=== PATIENT | male | born 1945 | race Hispanic/Latino ===

== ENCOUNTER 2018-08-18 04:15 | Inpatient (IN) | payer MEDICARE, BC ==
[2018-08-18] MEDS ORDERED: NACL 0.9% 1000 ML 1,000 ML IV ONE (06:53)
[2018-08-18] MEDS ORDERED: ZOFRAN IV ONE (06:53)
[2018-08-18] MEDS ORDERED: MORPHINE IV ONE ×2 (06:53→10:25)
[2018-08-18 06:55] LABS: Basophils # (Auto) 0.1 K/mm3 (0.0-0.1); Basophils % (Auto) 0.7 % (0.0-1.8); Eosinophils # (Auto) 0.1 K/mm3 (0.0-0.4); Hematocrit 43.4 % (35.5-45.6); Hemoglobin 14.9 gm/dl (11.8-15.2); Lymphocytes % (Auto) 13.1 % (13.4-35.0); Mean Corpuscular HGB Conc 34 % (32-34); Mean Corpuscular Volume 97 fl (84-94); Monocytes # (Auto) 0.7 K/mm3 (0.0-0.8); Monocytes % (Auto) 8.8 % (0.0-7.3); Platelet Count 223 K/mm3 (140-440); Red Blood Count 4.48 M/mm3 (3.65-5.03); Red Cell Distribution Width 14.7 % (13.2-15.2)
[2018-08-18 07:16] LABS: Alanine Aminotransferase 23 units/L (7-56); BUN/Creatinine Ratio 27; Blood Urea Nitrogen 19 mg/dL (9-20); Calcium 9.1 mg/dL (8.4-10.2); Hemolysis Index 47
[2018-08-18 07:33] LABS: INR 1.15 (0.87-1.13)
[2018-08-18 07:41] LABS: Bilirubin,Direct 0.2 mg/dL (0-0.2)
--- NOTE | 2018-08-18 08:39 | Cat Scan Report ---
PROCEDURE: CT ABDOMEN PELVIS WO CON TECHNIQUE: Computerized axial tomography of the abdomen and pelvis was performed without intravenous contrast. This study is performed without intravascular contrast material and its sensitivity for ab dominal and pelvic pathology, including neoplasms, inflammation, abscess, free fluid, thrombosis, art erial dissection and infarction, is reduced compared with a contrast enhanced study. CT DOSE LENGTH PRODUCT: mGycm HISTORY: l flank pain COMPARISONS: None . FINDINGS: Imaged intrathoracic contents are remarkable for pacemaker leads and coronary artery disease. Left ureteral stent. An 8 mm stone is present adjacent to the stent within the proximal ureter and an additional 9 mm stone is present adjacent to the stent within the distal ureter. No left-sided hydro ureteronephrosis. No stones in the left renal collecting system. There are nonobstructive 1 mm stones in the right collecting system. No right-sided hydroureteronephrosis. There are several scattered si mple-appearing renal cysts noted in both kidneys. No stones in the urinary bladder. Pelvic phlebolith s are noted. The liver, gallbladder, pancreas, spleen, and adrenal glands demonstrate an unremarkable noncontrast appearance. Hollow enteric organs are normal in course and caliber. No appendicitis. No intra-abdominal free air/ fluid or lymphadenopathy. Aorta is normal in course and caliber with densely scattered atherosclerosis. Superficial soft tissues are unremarkable. No acute or aggressive appearing skeletal findings. Lower thoracic diffuse etiopathic skeletal hyperostosis. IMPRESSION: Proximal and distal ureteral stones measuring up to 8 mm are present with a left ureteral stent in pl [place]. No hydroureteronephrosis. Coronary and peripheral arterial disease. This document is electronically signed by Freedom Warren MD., August 18 2018 07:35:55 AM ET
--- NOTE | 2018-08-18 09:35 | XRay Report ---
PROCEDURE: XR CHEST 1V AP TECHNIQUE: Chest radiograph single view. HISTORY: hypertension COMPARISONS: CT abdomen and pelvis of the same date . FINDINGS: No mediastinal shift. Cardiac silhouette is borderline enlarged. Left chest pacemaker. No pneumothora x, effusion, or focal pulmonary opacity identified. No acute skeletal findings. Cervical fusion hard alatorre. IMPRESSION: No acute pulmonary finding identified. This document is electronically signed by Freedom Warren MD., August 18 2018 08:19:36 AM ET
[2018-08-18 12:05] LABS: Bilirubin,Urine NEG (Negative); Blood,Urine LG (Negative); Color,Urine Amber (Yellow); Urobilinogen,Urine < 2.0 mg/dL (<2.0)
[2018-08-18 12:07] LABS: RBC,Urine > 182.0 /HPF (0.0-6.0)
[2018-08-18] MEDS ORDERED: ROCEPHIN/NS 1 GM/50 ML 1 GM/50 ML BAG IV ONE (13:04)
[2018-08-18] MEDS ORDERED: NORCO 5/325 PO ONE (13:04)
--- NOTE | 2018-08-18 13:19 | Emergency Department Report ---
ED General Adult HPI - General Chief complaint: Abdominal Pain Stated complaint: LEFT FLANK PAIN/BLOOD IN URINE Time Seen by Provider: 08/18/18 06:23 Source: patient, EMS Mode of arrival: Stretcher Limitations: No Limitations - History of Present Illness Initial comments: Is a 73-year-old man who is currently an inpatient at [facility]. Apparently he was admitted there 2 days ago for suicidal ideation. He was transferred from [place] after he voiced such complaints. He has multiple medical conditions. Apparently he was depressed about them per the daughter. He did not actually done anything to hurt himself however. Patient presents to the emergency room today complaining of left lateral chest and flank pain. He states he's had blood in his urine. He does not report fever or nausea or vomiting. The chest pain appears to be related to his left flank pain. However, the patient also complains of chronic pain radiating from the left side of his neck. He does admit that that pain is different. He takes 10 mg of hydrocodone twice a day on a chronic basis. He has had multiple cardiac stents. He has recently been taken off anticoagulants for ureteral stent placement. He states that he was supposed to have his anticoagulation restarted but this has not occurred yet. His urologist is in [place]. He did not have lithotripsy or endoscopic retrieval of kidney stone. He does give a history of an obstructing kidney stone however on the left. -: Gradual, days(s) Location: chest, back Radiation: non-radiation Severity scale (0 -10): 8 Quality: aching Consistency: intermittent Improves with: none Worsens with: none Associated Symptoms: denies other symptoms, other (dysuria) Treatments Prior to Arrival: none - Related Data Allergies Allergy/AdvReac Type Severity Reaction Status Date / Time droperidol Allergy Unknown Verified 08/18/18 04:40 ED Review of Systems ROS: Stated complaint: LEFT FLANK PAIN/BLOOD IN URINE Other details as noted in HPI Constitutional: denies: chills, fever Eyes: denies: eye pain, eye discharge, vision change ENT: denies: ear pain, throat pain Respiratory: denies: cough, shortness of breath, wheezing Cardiovascular: chest pain. denies: palpitations Endocrine: no symptoms reported Gastrointestinal: denies: abdominal pain, nausea, diarrhea Genitourinary: dysuria. denies: urgency Musculoskeletal: back pain. denies: joint swelling, arthralgia Skin: denies: rash, lesions Neurological: denies: headache, weakness, paresthesias Psychiatric: denies: anxiety, depression Hematological/Lymphatic: denies: easy bleeding, easy bruising ED Past Medical Hx - Past Medical History Previous Medical History?: Yes Hx Hypertension: Yes Hx Kidney Stones: Yes - Surgical History Past Surgical History?: Yes Hx Coronary Stent: Yes Hx Pacemaker: Yes - Social History Smoking Status: Former Smoker Substance Use Type: None ED Physical Exam - General Limitations: No Limitations General appearance: alert, in no apparent distress - Head Head exam: Present: atraumatic, normocephalic - Eye Eye exam: Present: normal appearance. Absent: scleral icterus - ENT ENT exam: Present: mucous membranes moist - Neck Neck exam: Present: normal inspection. Absent: tenderness, meningismus - Respiratory Respiratory exam: Present: normal lung sounds bilaterally. Absent: respiratory distress - Cardiovascular Cardiovascular Exam: Present: regular rate, normal rhythm. Absent: systolic murmur, diastolic murmur, rubs, gallop - GI/Abdominal GI/Abdominal exam: Present: soft, normal bowel sounds. Absent: distended, tende rness, guarding, rebound, rigid - Rectal Rectal exam: Present: deferred - Extremities Exam Extremities exam: Present: normal inspection - Back Exam Back exam: Present: normal inspection. Absent: CVA tenderness (R), CVA tenderness (L) - Neurological Exam Neurological exam: Present: alert, oriented X3, CN II-XII intact. Absent: motor sensory deficit - Psychiatric Psychiatric exam: Present: normal affect, normal mood - Skin Skin exam: Present: warm, dry, intact, normal color. Absent: rash ED Course Vital Signs 08/18/18 08/18/18 08/18/18 04:40 06:38 08:18 Temperature 97.9 F Pulse Rate 82 Respiratory 18 18 18 Rate Blood Pressure 176/105 [Right] O2 Sat by Pulse 97 99 98 Oximetry 08/18/18 08/18/18 09:02 13:07 Temperature 97.9 F Pulse Rate 86 88 Respiratory 18 18 Rate Blood Pressure 170/98 166/92 [Right] O2 Sat by Pulse 97 97 Oximetry - Reevaluation(s) Reevaluation #1: Patient with repeated complaints of pain. He does not have obstruction. He does have substantial pyuria. Urine was cultured. He was given ceftriaxone and vancomycin. His cardiac workup thus far is negative. His case was discussed with Dr. Arauz. He is admitted to the hospital for further care and evaluation by the hospitalist service. 08/18/18 13:24 ED Medical Decision Making - Lab Data Result diagrams: 08/18/18 06:42 08/18/18 06:42 Laboratory Results - last 24 hr 08/18/18 08/18/18 08/18/18 06:42 06:42 06:42 WBC 7.5 RBC 4.48 Hgb 14.9 Hct 43.4 MCV 97 H MCH 33 H MCHC 34 RDW 14.7 Plt Count 223 Lymph % (Auto) 13.1 L Thomas % (Auto) 8.8 H Eos % (Auto) 1.0 Baso % (Auto) 0.7 Lymph # 1.0 L Thomas # 0.7 Eos # 0.1 Baso # 0.1 Seg Neutrophils % 76.4 H Seg Neutrophils # 5.8 PT INR APTT Sodium 144 Potassium 3.6 Chloride 105.4 Carbon Dioxide 24 Anion Gap 18 BUN 19 Creatinine 0.7 L Estimated GFR > 60 BUN/Creatinine Ratio 27 Glucose 108 H Calcium 9.1 Total Bilirubin 1.10 Direct Bilirubin 0.2 Indirect Bilirubin 0.9 AST 26 ALT 23 Alkaline Phosphatase 70 Total Creatine Kinase 236 H CK-MB (CK-2) 5.0 H CK-MB (CK-2) Rel Index 2.1 Troponin T < 0.010 NT-Pro-B Natriuret Pep 352.7 Total Protein 6.1 L Albumin 4.0 Albumin/Globulin Ratio 1.9 Urine Color Urine Turbidity Urine pH Ur Specific Holman Urine Protein Urine Glucose (UA) Urine Ketones Urine Blood Urine Nitrite Urine Bilirubin Urine Urobilinogen Ur Leukocyte Esterase Urine WBC (Auto) Urine RBC (Auto) 08/18/18 08/18/18 07:05 11:35 WBC RBC Hgb Hct MCV MCH MCHC RDW Plt Count Lymph % (Auto) Thomas % (Auto) Eos % (Auto) Baso % (Auto) Lymph # Thomas # Eos # Baso # Seg Neutrophils % Seg Neutrophils # PT 15.4 H INR 1.15 H APTT 25.0 Sodium Potassium Chloride Carbon Dioxide Anion Gap BUN Creatinine Estimated GFR BUN/Creatinine Ratio Glucose Calcium Total Bilirubin Direct Bilirubin Indirect Bilirubin AST ALT Alkaline Phosphatase Total Creatine Kinase CK-MB (CK-2) CK-MB (CK-2) Rel Index Troponin T NT-Pro-B Natriuret Pep Total Protein Albumin Albumin/Globulin Ratio Urine Color Lorin Urine Turbidity Cloudy Urine pH 5.0 Ur Specific Holman 1.021 Urine Protein 100 mg/dl Urine Glucose (UA) Neg Urine Ketones Tr Urine Blood Lg Urine Nitrite Neg Urine Bilirubin Neg Urine Urobilinogen < 2.0 Ur Leukocyte Esterase Tr Urine WBC (Auto) 126.0 H Urine RBC (Auto) > 182.0 - EKG Data Interpretation: other (atrial pacing complete capture and nonspecific changes normal axis) - Radiology Data Radiology results: report reviewed Critical care attestation.: If time is entered above; I have spent that time in minutes in the direct care of this critically ill patient, excluding procedure time. ED Disposition Clinical Impression: Acute pyelonephritis, Ureteral stent retained Chest pain Qualifiers: Chest pain type: chest pain on breathing Qualified Code(s): R07.1 - Chest pain on breathing Disposition: DC-09 OP ADMIT IP TO THIS HOSP Is pt being admited?: Yes Does the pt Need Aspirin: Yes Condition: Stable Instructions: Chest Pain (ED) Referrals: MERON PAREKH MD [Primary Care Provider] - 3-5 Days Time of Disposition: 13:42
[2018-08-18] MEDS ORDERED: BABY ASPIRIN PO ONE (13:30)
[2018-08-18] MEDS ORDERED: VANCOMYCIN PHARMACY TO DOSE IV SCH (14:00)
[2018-08-18] MEDS ORDERED: VANCOMYCIN 1,750 MG in NACL 0.9% 500 ML 500 ML IV ONE (14:15)
[2018-08-18] MEDS ORDERED: DILAUDID IV PRN (18:34)
--- NOTE | 2018-08-18 19:03 | Cat Scan Report ---
PROCEDURE: CT HEAD/BRAIN WO CON TECHNIQUE: Computerized tomography of the head was performed without contrast material. HISTORY: Fall, VILLATORO, on Plavix COMPARISONS: None . FINDINGS: No CT evidence of intracranial mass, hemorrhage, acute territorial infarction, or hydrocephalus. Intr acranial arteries are symmetric in density. Calvarium is intact. There is minimal bilateral ethmoid s inus mucosal thickening. There is right maxillary sinus mucosal retention cyst or polyp. Mastoids are aerated. IMPRESSION: No CT evidence of acute abnormality . This document is electronically signed by Love Fox MD., August 18 2018 02:50:03 PM ET
--- NOTE | 2018-08-18 19:18 | History and Physical Report ---
History of Present Illness Date of examination: 08/18/18 Date of admission: 08/18/18 13:09 Chief complaint: Blood in Urine and L flank pain for 1 day History of present illness: 73-year-old man currently an inpatient at [facility] admitted there 2 days ago for suicidal ideation. He was transferred from [place] after he voiced such complaints. He has multiple medical conditions. Patient presents to the emergency room today complaining of left lateral flank pain and blood in the urine. Patient had Left ureteral stone for which he had a ureteral stent placed few days ago.No fever or chills.Pain is intermittent and about 8/10.Sharp and localized to L flank.No fever or chills.Patient says he is not suicidal now.Says he was depressed 2 days ago b/c of medical problems.He says he is not suicidal anymore. Past Medical History Previous Medical History?: Yes Hx Hypertension: Yes Hx Kidney Stones: Yes Surgical History Past Surgical History?: Yes Hx Coronary Stent: Yes Hx Pacemaker: Yes Social History Smoking Status: Former Smoker Substance Use Type: None Family History Htn Review of Systems ROS: Stated complaint: LEFT FLANK PAIN/BLOOD IN URINE Other details as noted in HPI Constitutional: denies: chills, fever Eyes: denies: eye pain, eye discharge, vision change ENT: denies: ear pain, throat pain Respiratory: denies: cough, shortness of breath, wheezing Cardiovascular: chest pain. denies: palpitations Endocrine: no symptoms reported Gastrointestinal: denies: abdominal pain, nausea, diarrhea Genitourinary: dysuria. denies: urgency Musculoskeletal: back pain. denies: joint swelling, arthralgia Skin: denies: rash, lesions Neurological: denies: headache, weakness, paresthesias Psychiatric: denies: anxiety, depression Hematological/Lymphatic: denies: easy bleeding, easy bruising Medications and Allergies Allergies Allergy/AdvReac Type Severity Reaction Status Date / Time droperidol Allergy Unknown Verified 08/18/18 04:40 Home Medications Medication Instructions Recorded Confirmed Last Taken Type Amiodarone [Cordarone 200 MG TAB] 200 mg PO DAILY 08/18/18 08/18/18 08/16/18 History Apixaban [Eliquis] 5 mg PO BID 08/18/18 08/18/18 08/16/18 History Ciprofloxacin HCl [Ciprofloxacin 250 mg PO BID 08/18/18 08/18/18 08/16/18 History TAB] Clopidogrel Bisulfate [Clopidogrel] 75 mg PO DAILY 08/18/18 08/18/18 08/16/18 History Digoxin [Lanoxin] 0.125 mg PO DAILY 08/18/18 08/18/18 08/16/18 History FLUoxetine HCL [Fluoxetine HCl] 40 mg PO QDAY 08/18/18 08/18/18 08/16/18 History Hyoscyamine Sulfate [Hyoscyamine 1 dose PO PRN 08/18/18 08/18/18 08/16/18 History Rapdis 0.125 mg] Metoprolol Succinate 50 mg PO BID 08/18/18 08/18/18 08/16/18 History Ondansetron [Zofran TAB] 4 mg PO Q8HR PRN 08/18/18 08/18/18 Unknown History Phenazopyridine [Pyridium] 100 mg PO TID 08/18/18 08/18/18 08/16/18 History Pramipexole [Mirapex] 0.125 mg PO TID 08/18/18 08/18/18 08/16/18 History Zolpidem [Ambien] 5 mg PO QHS PRN 08/18/18 08/18/18 08/15/18 History Active Meds: Active Medications Hydromorphone HCl (Dilaudid) 0.5 mg IV Q3H PRN PRN Reason: Pain , Severe (7-10) Last Admin: 08/18/18 18:43 Dose: 0.5 mg Documented by: Vancomycin HCl 1,250 mg/ (Sodium Chloride) 275 mls @ 166.667 mls/hr IV Q12H KENNETH Exam - Constitutional Vitals: Temp Pulse Resp BP Pulse Ox 97.7 F 86 20 143/70 94 08/18/18 17:15 08/18/18 17:15 08/18/18 17:15 08/18/18 17:15 08/18/18 17:15 General appearance: Present: no acute distress, well-nourished - EENT Eyes: Present: PERRL ENT: hearing intact, clear oral mucosa - Neck Neck: Present: supple, normal ROM - Respiratory Respiratory effort: normal Respiratory: bilateral: CTA - Cardiovascular Heart rate: 78 Rhythm: regular Heart Sounds: Present: S1 & S2. Absent: rub, click - Extremities Extremities: no ischemia, pulses intact, pulses symmetrical, No edema Peripheral Pulses: within normal limits - Abdominal General gastrointestinal: Present: soft, non-tender, non-distended, normal bowel sounds Localized gastrointestinal: tender: LLQ (L flank tender) Male genitourinary: Present: normal - Rectal Rectal Exam: deferred - Integumentary Integumentary: Present: clear, warm, dry - Musculoskeletal Musculoskeletal: gait normal, strength equal bilaterally - Psychiatric Psychiatric: appropriate mood/affect, intact judgment & insight - Neurologic Neurologic: CNII-XII intact, moves all extremities - Allied Health Allied health notes reviewed: nursing, case management Results - Labs CBC & Chem 7: 08/18/18 06:42 08/18/18 06:42 Labs: Laboratory Last Values WBC 7.5 K/mm3 (4.5-11.0) 08/18/18 06:42 RBC 4.48 M/mm3 (3.65-5.03) 08/18/18 06:42 Hgb 14.9 gm/dl (11.8-15.2) 08/18/18 06:42 Hct 43.4 % (35.5-45.6) 08/18/18 06:42 MCV 97 fl (84-94) H 08/18/18 06:42 MCH 33 pg (28-32) H 08/18/18 06:42 MCHC 34 % (32-34) 08/18/18 06:42 RDW 14.7 % (13.2-15.2) 08/18/18 06:42 Plt Count 223 K/mm3 (140-440) 08/18/18 06:42 Lymph % (Auto) 13.1 % (13.4-35.0) L 08/18/18 06:42 [place] % (Auto) 8.8 % (0.0-7.3) H 08/18/18 06:42 Eos % (Auto) 1.0 % (0.0-4.3) 08/18/18 06:42 Baso % (Auto) 0.7 % (0.0-1.8) 08/18/18 06:42 Lymph # 1.0 K/mm3 (1.2-5.4) L 08/18/18 06:42 [place] # 0.7 K/mm3 (0.0-0.8) 08/18/18 06:42 Eos # 0.1 K/mm3 (0.0-0.4) 08/18/18 06:42 Baso # 0.1 K/mm3 (0.0-0.1) 08/18/18 06:42 Seg Neutrophils % 76.4 % (40.0-70.0) H 08/18/18 06:42 Seg Neutrophils # 5.8 K/mm3 (1.8-7.7) 08/18/18 06:42 PT 15.4 Sec. (12.2-14.9) H 08/18/18 07:05 INR 1.15 (0.87-1.13) H 08/18/18 07:05 APTT 25.0 Sec. (24.2-36.6) 08/18/18 07:05 Sodium 144 mmol/L (137-145) 08/18/18 06:42 Potassium 3.6 mmol/L (3.6-5.0) 08/18/18 06:42 Chloride 105.4 mmol/L (98-107) 08/18/18 06:42 Carbon Dioxide 24 mmol/L (22-30) 08/18/18 06:42 Anion Gap 18 mmol/L 08/18/18 06:42 BUN 19 mg/dL (9-20) 08/18/18 06:42 Creatinine 0.7 mg/dL (0.8-1.5) L 08/18/18 06:42 Estimated GFR > 60 ml/min 08/18/18 06:42 BUN/Creatinine Ratio 27 % 08/18/18 06:42 Glucose 108 mg/dL (75-100) H 08/18/18 06:42 Calcium 9.1 mg/dL (8.4-10.2) 08/18/18 06:42 Total Bilirubin 1.10 mg/dL (0.1-1.2) 08/18/18 06:42 Direct Bilirubin 0.2 mg/dL (0-0.2) 08/18/18 06:42 Indirect Bilirubin 0.9 mg/dL 08/18/18 06:42 AST 26 units/L (5-40) 08/18/18 06:42 ALT 23 units/L (7-56) 08/18/18 06:42 Alkaline Phosphatase 70 units/L (35-129) 08/18/18 06:42 Total Creatine Kinase 236 units/L (55-170) H 08/18/18 06:42 CK-MB (CK-2) 5.0 ng/mL (0.0-4.0) H 08/18/18 06:42 CK-MB (CK-2) Rel Index 2.1 (0-4) 08/18/18 06:42 Troponin T < 0.010 ng/mL (0.00-0.029) 08/18/18 06:42 NT-Pro-B Natriuret Pep 352.7 pg/mL (0-900) 08/18/18 06:42 Total Protein 6.1 g/dL (6.3-8.2) L 08/18/18 06:42 Albumin 4.0 g/dL (3.9-5) 08/18/18 06:42 Albumin/Globulin Ratio 1.9 % 08/18/18 06:42 Urine Color Lorin (Yellow) 08/18/18 11:35 Urine Turbidity Cloudy (Clear) 08/18/18 11:35 Urine pH 5.0 (5.0-7.0) 08/18/18 11:35 Ur Specific Jarratt 1.021 (1.003-1.030) 08/18/18 11:35 Urine Protein 100 mg/dl mg/dL (Negative) 08/18/18 11:35 Urine Glucose (UA) Neg mg/dL (Negative) 08/18/18 11:35 Urine Ketones Tr mg/dL (Negative) 08/18/18 11:35 Urine Blood Lg (Negative) 08/18/18 11:35 Urine Nitrite Neg (Negative) 08/18/18 11:35 Urine Bilirubin Neg (Negative) 08/18/18 11:35 Urine Urobilinogen < 2.0 mg/dL (<2.0) 08/18/18 11:35 Ur Leukocyte Esterase Tr (Negative) 08/18/18 11:35 Urine WBC (Auto) 126.0 /HPF (0.0-6.0) H 08/18/18 11:35 Urine RBC (Auto) > 182.0 /HPF (0.0-6.0) 08/18/18 11:35 Short CBC 08/18/18 Range/Units 06:42 WBC 7.5 (4.5-11.0) K/mm3 Hgb 14.9 (11.8-15.2) gm/dl Hct 43.4 (35.5-45.6) % Plt Count 223 (140-440) K/mm3 [facility] 08/18/18 06:42 Sodium 144 Potassium 3.6 Chloride 105.4 Carbon Dioxide 24 BUN 19 Creatinine 0.7 L Glucose 108 H Calcium 9.1 Cardiac Enzymes 08/18/18 Range/Units 06:42 Total Creatine Kinase 236 H (55-170) units/L CK-MB (CK-2) 5.0 H (0.0-4.0) ng/mL Troponin T < 0.010 (0.00-0.029) ng/mL Liver Function 08/18/18 Range/Units 06:42 Total Bilirubin 1.10 (0.1-1.2) mg/dL Direct Bilirubin 0.2 (0-0.2) mg/dL AST 26 (5-40) units/L ALT 23 (7-56) units/L Alkaline Phosphatase 70 (35-129) units/L Albumin 4.0 (3.9-5) g/dL Urine 08/18/18 Range/Units 11:35 Urine Color Lorin (Yellow) Urine pH 5.0 (5.0-7.0) Ur Specific Jarratt 1.021 (1.003-1.030) Urine Protein 100 mg/dl (Negative) mg/dL Urine Glucose (UA) Neg (Negative) mg/dL Short CBC 08/18/18 Range/Units 06:42 WBC 7.5 (4.5-11.0) K/mm3 Hgb 14.9 (11.8-15.2) gm/dl Hct 43.4 (35.5-45.6) % Plt Count 223 (140-440) K/mm3 [facility] 08/18/18 06:42 Sodium 144 Potassium 3.6 Chloride 105.4 Carbon Dioxide 24 BUN 19 Creatinine 0.7 L Glucose 108 H Calcium 9.1 Cardiac Enzymes 08/18/18 Range/Units 06:42 Total Creatine Kinase 236 H (55-170) units/L CK-MB (CK-2) 5.0 H (0.0-4.0) ng/mL Troponin T < 0.010 (0.00-0.029) ng/mL Liver Function 08/18/18 Range/Units 06:42 Total Bilirubin 1.10 (0.1-1.2) mg/dL Direct Bilirubin 0.2 (0-0.2) mg/dL AST 26 (5-40) units/L ALT 23 (7-56) units/L Alkaline Phosphatase 70 (35-129) units/L Albumin 4.0 (3.9-5) g/dL Urine 08/18/18 Range/Units 11:35 Urine Color Lorin (Yellow) Urine pH 5.0 (5.0-7.0) Ur Specific Jarratt 1.021 (1.003-1.030) Urine Protein 100 mg/dl (Negative) mg/dL Urine Glucose (UA) Neg (Negative) mg/dL - Imaging and Cardiology EKG: report reviewed (Atrial paced complexes 86/min) Chest x-ray: report reviewed (NAF) CT scan - abdomen: report reviewed Imaging and Cardiology: CT Abd IMPRESSION: Proximal and distal ureteral stones measuring up to 8 mm are present with a left ureteral stent in place. No hydroureteronephrosis. Coronary and peripheral arterial disease. Head CT IMPRESSION: No CT evidence of acute abnormality . Assessment and Plan Advance Directives: Yes (Full code) VTE prophylaxis?: Mechanical Plan of care discussed with patient/family: Yes - Patient Problems (1) Acute pyelonephritis Current Visit: Yes Status: Acute Plan to address problem: IV ceftriaxone pending urine cultures. (2) Hematuria Current Visit: Yes Status: Acute Qualifiers: Hematuria type: unspecified type Qualified Code(s): R31.9 - Hematuria, unspecified Plan to address problem: Resolving. Had Ureteral Stent one week ago. NoUrology consult requested. Call consult if necessary (3) Arrhythmia Current Visit: Yes Status: Chronic Qualifiers: Atrial fibrillation type: unspecified Plan to address problem: Cont Amiodarone and Digoxin Hold Eliquis given Hematuria (4) HTN (hypertension) Current Visit: Yes Status: Chronic Qualifiers: Hypertension type: essential hypertension Qualified Code(s): I10 - Essential (primary) hypertension Plan to address problem: COnt antihypertensives (5) RLS (restless legs syndrome) Current Visit: Yes Status: Chronic Plan to address problem: Cont Mirapex (6) DVT prophylaxis Current Visit: Yes Status: Acute Plan to address problem: On SCD's and GI prophylaxis
[2018-08-18] MEDS: AMBIEN PO PRN (22:35)
[2018-08-18] MEDS: MIRAPEX PO SCH (22:35)
[2018-08-19] MEDS: LOPRESSOR PO SCH ×3 (00:27→21:07)
[2018-08-19] MEDS: DILAUDID IV PRN ×4 (01:19→21:09)
[2018-08-19] MEDS ORDERED: VANCOMYCIN 1,250 MG in NACL 0.9% 250ML 250 ML IV SCH (05:00)
--- NOTE | 2018-08-19 09:55 | Progress Note ---
Assessment and Plan Assessment and plan: Hematuria s/p stent placed recently Urine clearing Urology consulted UTI Cont Antibiotics History Interval history: Bloody urine pain left flank,resolved Suicidal Hospitalist Physical - Physical exam Narrative exam: GEN: Not in acute distress, HEENT: Normocephalic, atraumatic, Neck: supple, No JVD Lungs: Clear to auscultation bilaterally, no crackles Abd:soft, non tender, non distended, normal bowel sounds Ext: No edema, no clubbing, no cyanosis Neuro:Awake,alert,oriented x 3, Skin:No rash - Constitutional Vitals: Temp Pulse Resp BP Pulse Ox 98.5 F 82 16 156/98 96 08/19/18 03:14 08/19/18 03:14 08/19/18 03:14 08/19/18 03:14 08/19/18 03:14 General appearance: Present: no acute distress, well-nourished Results - Labs CBC & Chem 7: 08/19/18 09:10 08/19/18 09:10 Labs: Laboratory Last Values WBC 7.5 K/mm3 (4.5-11.0) 08/18/18 06:42 RBC 4.48 M/mm3 (3.65-5.03) 08/18/18 06:42 Hgb 14.9 gm/dl (11.8-15.2) 08/18/18 06:42 Hct 43.4 % (35.5-45.6) 08/18/18 06:42 MCV 97 fl (84-94) H 08/18/18 06:42 MCH 33 pg (28-32) H 08/18/18 06:42 MCHC 34 % (32-34) 08/18/18 06:42 RDW 14.7 % (13.2-15.2) 08/18/18 06:42 Plt Count 223 K/mm3 (140-440) 08/18/18 06:42 Lymph % (Auto) 13.1 % (13.4-35.0) L 08/18/18 06:42 [place] % (Auto) 8.8 % (0.0-7.3) H 08/18/18 06:42 Eos % (Auto) 1.0 % (0.0-4.3) 08/18/18 06:42 Baso % (Auto) 0.7 % (0.0-1.8) 08/18/18 06:42 Lymph # 1.0 K/mm3 (1.2-5.4) L 08/18/18 06:42 Marshall # 0.7 K/mm3 (0.0-0.8) 08/18/18 06:42 Eos # 0.1 K/mm3 (0.0-0.4) 08/18/18 06:42 Baso # 0.1 K/mm3 (0.0-0.1) 08/18/18 06:42 Seg Neutrophils % 76.4 % (40.0-70.0) H 08/18/18 06:42 Seg Neutrophils # 5.8 K/mm3 (1.8-7.7) 08/18/18 06:42 PT 15.4 Sec. (12.2-14.9) H 08/18/18 07:05 INR 1.15 (0.87-1.13) H 08/18/18 07:05 APTT 25.0 Sec. (24.2-36.6) 08/18/18 07:05 Sodium 144 mmol/L (137-145) 08/18/18 06:42 Potassium 3.6 mmol/L (3.6-5.0) 08/18/18 06:42 Chloride 105.4 mmol/L (98-107) 08/18/18 06:42 Carbon Dioxide 24 mmol/L (22-30) 08/18/18 06:42 Anion Gap 18 mmol/L 08/18/18 06:42 BUN 19 mg/dL (9-20) 08/18/18 06:42 Creatinine 0.7 mg/dL (0.8-1.5) L 08/18/18 06:42 Estimated GFR > 60 ml/min 08/18/18 06:42 BUN/Creatinine Ratio 27 % 08/18/18 06:42 Glucose 108 mg/dL (75-100) H 08/18/18 06:42 Calcium 9.1 mg/dL (8.4-10.2) 08/18/18 06:42 Total Bilirubin 1.10 mg/dL (0.1-1.2) 08/18/18 06:42 Direct Bilirubin 0.2 mg/dL (0-0.2) 08/18/18 06:42 Indirect Bilirubin 0.9 mg/dL 08/18/18 06:42 AST 26 units/L (5-40) 08/18/18 06:42 ALT 23 units/L (7-56) 08/18/18 06:42 Alkaline Phosphatase 70 units/L (35-129) 08/18/18 06:42 Total Creatine Kinase 236 units/L (55-170) H 08/18/18 06:42 CK-MB (CK-2) 5.0 ng/mL (0.0-4.0) H 08/18/18 06:42 CK-MB (CK-2) Rel Index 2.1 (0-4) 08/18/18 06:42 Troponin T < 0.010 ng/mL (0.00-0.029) 08/18/18 06:42 NT-Pro-B Natriuret Pep 352.7 pg/mL (0-900) 08/18/18 06:42 Total Protein 6.1 g/dL (6.3-8.2) L 08/18/18 06:42 Albumin 4.0 g/dL (3.9-5) 08/18/18 06:42 Albumin/Globulin Ratio 1.9 % 08/18/18 06:42 Urine Color [place] (Yellow) 08/18/18 11:35 Urine Turbidity Cloudy (Clear) 08/18/18 11:35 Urine pH 5.0 (5.0-7.0) 08/18/18 11:35 Ur Specific [place] 1.021 (1.003-1.030) 08/18/18 11:35 Urine Protein 100 mg/dl mg/dL (Negative) 08/18/18 11:35 Urine Glucose (UA) Neg mg/dL (Negative) 08/18/18 11:35 Urine Ketones Tr mg/dL (Negative) 08/18/18 11:35 Urine Blood Lg (Negative) 08/18/18 11:35 Urine Nitrite Neg (Negative) 08/18/18 11:35 Urine Bilirubin Neg (Negative) 08/18/18 11:35 Urine Urobilinogen < 2.0 mg/dL (<2.0) 08/18/18 11:35 Ur Leukocyte Esterase Tr (Negative) 08/18/18 11:35 Urine WBC (Auto) 126.0 /HPF (0.0-6.0) H 08/18/18 11:35 Urine RBC (Auto) > 182.0 /HPF (0.0-6.0) 08/18/18 11:35
[2018-08-19] MEDS ORDERED: HYOSCYAMINE SULFATE PO SCH (10:00)
[2018-08-19] MEDS ORDERED: METOPROLOL SUCCINATE 50 MG PO SCH (10:00)
[2018-08-19] MEDS ORDERED: LANOXIN PO SCH (10:00)
[2018-08-19] MEDS ORDERED: NON-FORMULARY (Fluoxetine Hcl [Fluoxetine Hcl] 40 MG) PO SCH (10:00)
[2018-08-19] MEDS: MIRAPEX PO SCH ×2 (10:14→17:03)
[2018-08-19] MEDS: CORDARONE PO SCH (10:14)
[2018-08-19] MEDS: ROCEPHIN/NS 2 GM/100 ML 2 GM/100 ML BAG IV SCH (10:15)
[2018-08-19 10:31] LABS: Hematocrit 45.4 % (35.5-45.6); Hemoglobin 15.3 gm/dl (11.8-15.2); Mean Corpuscular HGB Conc 34 % (32-34); Mean Corpuscular Volume 98 fl (84-94); Platelet Count 238 K/mm3 (140-440); Red Blood Count 4.65 M/mm3 (3.65-5.03); Red Cell Distribution Width 14.7 % (13.2-15.2)
[2018-08-19] MEDS ORDERED: LEVSIN SL SL PRN (10:34)
[2018-08-19 10:57] LABS: BUN/Creatinine Ratio 21; Blood Urea Nitrogen 15 mg/dL (9-20); Hemolysis Index 8
[2018-08-19] MEDS ORDERED: LOPRESSOR PO SCH (11:00)
[2018-08-19] MEDS: LANOXIN PO SCH (17:03)
[2018-08-19] MEDS: PYRIDIUM PO SCH ×2 (17:04→21:07)
[2018-08-19] MEDS: AMBIEN PO PRN (21:07)
[2018-08-19] MEDS ORDERED: AMBIEN PO PRN (22:00)
[2018-08-20] MEDS: MIRAPEX PO SCH ×4 (00:36→14:57)
[2018-08-20] MEDS: DILAUDID IV PRN ×3 (03:21→16:34)
[2018-08-20 07:09] LABS: Hematocrit 40.8 % (35.5-45.6)
[2018-08-20] MEDS ORDERED: PROzac PO SCH (10:00)
[2018-08-20] MEDS: ROCEPHIN/NS 2 GM/100 ML 2 GM/100 ML BAG IV SCH (10:02)
[2018-08-20] MEDS: PYRIDIUM PO SCH ×2 (10:05→14:57)
[2018-08-20] MEDS: CORDARONE PO SCH (10:06)
[2018-08-20] MEDS: LOPRESSOR PO SCH (10:06)
--- NOTE | 2018-08-20 10:17 | Consultation ---
History of Present Illness - Reason for Consult Consult date: 08/20/18 Reason for consult: Mental Health Evaluation Requesting physician: PERRI STEWART - Chief Complaint Chief complaint: "I made a statement, that's all" - History of Present Psychiatric Illness 73-year-old man who presented to the ER from [place] for chest pain, flank pain, and hematuria. Today the patient is cooperative during the assessment. He stated that he made a statement about dying at a hospital in [place], [place] and was transferred to [place]. He stated that he was frustrated about being in the same house where his from cancer. He stated that he is dealing with other medical issues. Per the patient, stents was placed (Urology). He acknowledged a hx of depression and take Prozac. He is adamant that he isn't suicidal. He denies a previous suicide attempt when asked. He stated that he plan to move into another home so he can leave the memories of 's at his current home. He denies SI/HI's and AVH's. He denies erratic sleep and a poor appetite. He denies any manic episodes in the past. He denies recreational drug use and alcohol consumption (etoh). Medications and Allergies Allergies Allergy/AdvReac Type Severity Reaction Status Date / Time droperidol Allergy Unknown Verified 08/18/18 04:40 Home Medications Medication Instructions Recorded Confirmed Last Taken Type Amiodarone [Cordarone 200 MG TAB] 200 mg PO DAILY 08/18/18 08/18/18 08/16/18 History Apixaban [Eliquis] 5 mg PO BID 08/18/18 08/18/18 08/16/18 History Ciprofloxacin HCl [Ciprofloxacin 250 mg PO BID 08/18/18 08/18/18 08/16/18 Histor y TAB] Clopidogrel Bisulfate [Clopidogrel] 75 mg PO DAILY 08/18/18 08/18/18 08/16/18 History Digoxin [Lanoxin] 0.125 mg PO DAILY 08/18/18 08/18/18 08/16/18 History FLUoxetine HCL [Fluoxetine HCl] 40 mg PO QDAY 08/18/18 08/18/18 08/16/18 History Hyoscyamine Sulfate [Hyoscyamine 1 dose PO PRN 08/18/18 08/18/18 08/16/18 History Rapdis 0.125 mg] Metoprolol Succinate 50 mg PO BID 08/18/18 08/18/18 08/16/18 History Ondansetron [Zofran TAB] 4 mg PO Q8HR PRN 08/18/18 08/18/18 Unknown History Phenazopyridine [Pyridium] 100 mg PO TID 08/18/18 08/18/18 08/16/18 History Pramipexole [Mirapex] 0.125 mg PO TID 08/18/18 08/18/18 08/16/18 History Zolpidem [Ambien] 5 mg PO QHS PRN 08/18/18 08/18/18 08/15/18 History Active Meds: Active Medications Amiodarone HCl (Cordarone) 200 mg PO DAILY [facility] Last Admin: 08/20/18 10:06 Dose: 200 mg Documented by: Digoxin (Lanoxin) 0.125 mg PO DAILY@1700 [facility] Last Admin: 08/19/18 17:03 Dose: 0.125 mg Documented by: Fluoxetine HCl (Prozac) 40 mg PO QDAY [facility] Last Admin: 08/20/18 10:07 Dose: 40 mg Documented by: Hydromorphone HCl (Dilaudid) 0.5 mg IV Q3H PRN PRN Reason: Pain , Severe (7-10) Last Admin: 08/20/18 03:21 Dose: 0.5 mg Documented by: Hyoscyamine (Levsin Sl) 0.125 mg SL Q4H PRN PRN Reason: Spasms Ceftriaxone Sodium (Rocephin/Ns 2 Gm/100 Ml) 2 gm in 100 mls @ 200 mls/hr IV Q2 4HR [facility]; Protocol Last Admin: 08/20/18 10:02 Dose: 200 mls/hr Documented by: Metoprolol Tartrate (Lopressor) 50 mg PO BID [facility] Last Admin: 08/20/18 10:06 Dose: 50 mg Documented by: Phenazopyridine HCl (Pyridium) 100 mg PO TID [facility] Last Admin: 08/20/18 10:05 Dose: 100 mg Documented by: Pramipexole Dihydrochloride (Mirapex) 0.125 mg PO TID [facility] Last Admin: 08/20/18 10:04 Dose: 0.125 mg Documented by: Zolpidem Tartrate (Ambien) 5 mg PO QHS PRN PRN Reason: Sleep Last Admin: 08/19/18 21:07 Dose: 5 mg Documented by: Mental Status Exam - Vital signs Last Vital Signs Temp 98.1 F 08/20/18 04:47 Pulse 71 08/20/18 04:47 Resp 16 08/20/18 04:47 BP 143/84 08/20/18 04:47 Pulse Ox 95 08/20/18 04:47 - Exam Narrative exam: MSE: Appearance: cooperative Behavior: regular eye contact Speech: regular rate and tone Mood: "frustrated" Affect: congruent to mood Thought Process: linear Thought Content: denies SI/HI's and AVH's Motor Activity: sitting up in the bed Cognition: A/O x 3 Insight: fair Judgment: fair Results Result Diagrams: 08/20/18 06:44 08/19/18 09:10 Abnormal lab results 08/19/18 08/19/18 Range/Units 09:10 09:10 Hgb 15.3 H (11.8-15.2) gm/dl MCV 98 H (84-94) fl MCH 33 H (28-32) pg Creatinine 0.7 L (0.8-1.5) mg/dL All other labs normal. Assessment and Plan Assessment and plan: Impression: Hx of Depression. Today the patient is cooperative during the assessment. Recommendation/Plan: Continue 1013 and gather collateral information. Continue Prozac 40 mg PO daily for depression. Discussed possible suicidality/medication induced jeimy with the patient reference Prozac. Dispo: Once collateral information is gathered, proper dispo will be determined. Will staff with Dr Patel Ramirez.
--- NOTE | 2018-08-20 10:59 | Event Note ---
Date: 08/20/18 Patient medically stable for discharge back to [facility] facility
[2018-08-20] MEDS ORDERED: PLAVIX PO SCH (11:00)
[2018-08-20] MEDS ORDERED: ELIQUIS PO SCH (12:00)
[2018-08-20 16:24] VITALS: BP 115/62
--- NOTE | 2018-08-20 17:02 | Discharge Summary ---
Providers - Providers Date of Admission: 08/18/18 13:09 Date of discharge: 08/20/18 Attending physician: BROOK PAN 08/19/18 06:45 Consult to Mental Health [CONS] Routine Reason For Exam: Suicidal ideation Place consult to:: Mental Health Notified:: Margaret TAYLOR Phone number called:: [phone] Was contact made?: Yes If yes, spoke with:: [facility] Time called:: 07:59 Primary care physician: LAYAWAY CLERK Hospitalization Condition: Fair Hospital course: Patient is 73-year-old man, sent in from [facility] for left flank pain and blood in the urine. Patient had Left ureteral stone for which he had a ureteral stent placed few days earlier. He denied fever or chills. Patient was evaluated in Emergency Department . CT abdomen showed proximal and distal ureteral stones on the stents was present. There was no hydronephrosis. He was started on Ceftriaxone IV and admitted. On admission he has bloody Urine but this cleared over 2 days. Patient was re-evaluated on 08/20/2018. Urine was clear, flank pain had resolved. So patient was discharged home to follow with His Urologist as an outpatient. Total time spent on discharge, 32 Minutes Disposition: DC-01 TO HOME OR SELFCARE - Discharge Diagnoses (1) UTI (urinary tract infection) Status: Acute (2) Acute pyelonephritis Status: Acute (3) Hematuria Status: Acute Qualifiers: Hematuria type: unspecified type Qualified Code(s): R31.9 - Hematuria, unspecified (4) HTN (hypertension) Status: Chronic Qualifiers: Hypertension type: essential hypertension Qualified Code(s): I10 - Essential (primary) hypertension (5) RLS (restless legs syndrome) Status: Chronic (6) HTN (hypertension) Status: Acute Core Measure Documentation - Palliative Care Palliative Care/ Comfort Measures: Not Applicable - Core Measures Any of the following diagnoses?: none Exam - Constitutional Vitals: Temp Pulse Resp BP Pulse Ox 97.6 F 70 16 115/62 96 08/20/18 09:00 08/20/18 16:22 08/20/18 04:47 08/20/18 16:22 08/20/18 16:22 Plan Activity: advance as tolerated Diet: low fat, low cholesterol, low salt Additional Instructions: 1.Follow up with PCP in 1 week. 2.Follow up with Urologist in 1 week
[2018-08-20] MEDS: LANOXIN PO SCH (17:32)
== END 2018-08-20 18:15 | disposition home or self-care (01) | DRG 690 ==
LOC: ED 04:15 → 4A 13:09
PROVIDERS: ADMIT Internal Medicine; ATTEND Internal Medicine
DX: N10 Acute pyelonephritis (principal); R31.9 Hematuria, unspecified; I49.9 Cardiac arrhythmia, unspecified; I10 Essential (primary) hypertension; Z88.8 Allergy status to other drugs, medicaments and biological substances; Z98.61 Coronary angioplasty status; Z95.0 Presence of cardiac pacemaker; Z87.891 Personal history of nicotine dependence; G25.81 Restless legs syndrome; F32.9 Major depressive disorder, single episode, unspecified
CPT/HCPCS: 36415; 70450; 71045; 74176; 80048; 80076; 81001; 82550; 82553; 83880; 84484; 85014; 85018; 85025; 85027; 85610; 85730; 87040; 87086; 93005; 93010; G0378; J0696; J1170; J2270; J2405; J3370; J7030; J7040; J7050